=== PATIENT | female | born 1990 | race Caucasian/White ===

== ENCOUNTER 2019-07-18 01:50 | Emergency (ER) | payer SELFPAY ==
--- OUTSIDE RECORDS SUMMARY | 2019-07-18 01:52 | XMS REPORT ---
:1990 [facility] Address [address] [place] [address] [address]. [address] [place] [address] Care Team Providers Name Role Phone Unavailable Unavailable Unavailable Problems This patient has no known problems. Allergies, Adverse Reactions, Alerts This patient has no known allergies or adverse reactions. Medications This patient has no known medications.
--- NOTE | 2019-07-18 03:05 | ER ---
Nurse's Notes [facility] Name: Lisa Penn Age: 28 yrs Sex: Female : 1990 Arrival Date: 07/18/2019 Time: 01:54 Bed 20 Private MD: Diagnosis: Acute pharyngitis Presentation: 07/18 02:05 Presenting complaint: Patient states: she has had a sore throat for a week but the pain bb is worse tonight and she feels like it is "closed" on the left side, pt denies fever. Transition of care: patient was not received from another setting of care. Onset of symptoms was July 12, 2019. Risk Assessment: Do you want to hurt yourself or someone else? Patient reports no desire to harm self or others. Initial Sepsis Screen: Does the patient meet any 2 criteria? No. Patient's initial sepsis screen is negative. Does the patient have a suspected source of infection? No. Patient's initial sepsis screen is negative. Care prior to arrival: None. 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 - Social history:: Smoking status: unknown. - Ebola Screening: : No symptoms or risks identified at this time. Screenin:26 Abuse screen: Denies threats or abuse. Denies injuries from another. Nutritional wh screening: No deficits noted. Tuberculosis screening: No symptoms or risk factors identified. Fall Risk None identified. Assessment: 02:24 General: Appears in no apparent distress. Behavior is calm, cooperative, appropriate wh for age. Pain: Complains of pain in Sore throat. Neuro: Level of Consciousness is awake, alert, obeys commands, Oriented to person, place, time, situation, Appropriate for age. Cardiovascular: Heart tones S1 S2. Respiratory: Airway is patent Respiratory effort is even, unlabored, Respiratory pattern is regular, symmetrical, Breath sounds are clear bilaterally. GI: Abdomen is flat, non-distended. : No signs and/or symptoms were reported regarding the genitourinary system. EENT: Throat is reddened. Derm: Skin is intact, is healthy with good turgor, Skin is pink, warm \\T\\ dry. normal. Musculoskeletal: Circulation, motion, and sensation intact. 03:37 Reassessment: Patient appears in no apparent distress at this time. No changes from previously documented assessment. Patient and/or family updated on plan of care and expected duration. Pain level reassessed. Patient is alert, oriented x 3, equal unlabored respirations, skin warm/dry/pink. Vital Signs: 02:07 BP 116 / 58; Pulse 83; Resp 14 S; Temp 98.2(O); Pulse Ox 100% on R/A; Weight 134.26 kg bb (R); Height 5 ft. 4 in. (162.56 cm) (R); Pain 8/10; 02:26 BP 102 / 60; Pulse 87; Resp 16; Pulse Ox 100% on R/A; wh 03:37 BP 97 / 67; Pulse 83; Resp 18; Pulse Ox 99% ; wh 02:07 Body Mass Index 50.81 (134.26 kg, 162.56 cm) ED Course: 01:54 Patient arrived in ED. jg7 02:00 Veronica Jacques FNP-C [facility]. snw 02:00 Pancho Mendoza MD is Attending Physician. snw 02:05 Kolby Castle is Primary Nurse. 02:07 Triage completed. 02:07 Arm band placed on Patient placed in an exam room, on a stretcher, on pulse oximetry. 02:26 Patient has correct armband on for positive identification. Bed in low position. Call light in reach. Side rails up X 1. Pulse ox on. NIBP on. 03:38 No provider procedures requiring assistance completed. Patient did not have IV access during this emergency room visit. Administered Medications: 03:13 Drug: Decadron 8 mg Route: PO; 03:39 Follow up: Response: No adverse reaction Outcome: 03:03 Discharge ordered by . snw 03:38 Discharged to home ambulatory. 03:38 Condition: stable 03:38 Discharge instructions given to patient, Instructed on discharge instructions, follow up and referral plans. medication usage, POC Pharyngitis Demonstrated understanding of instructions, follow-up care, medications, POC Prescriptions given X 2. 03:39 Patient left the ED. Signatures: Veronica Jacques, RESEARCH RECRUITER-C RESEARCH RECRUITER-Csnw Sandra Nunez, RN RN Kolby Peterson Taylor Brady
--- NOTE | 2019-07-18 03:05 | EDPHYS ---
Physician Documentation [facility] Name: Lisa Penn Age: 28 yrs Sex: Female : 1990 Arrival Date: 07/18/2019 Time: 01:54 Bed 20 Private MD: ED Physician Pancho Mendoza HPI: 07/18 02:51 This 28 yrs old Female presents to ER via Ambulatory with complaints of Sore snw Throat, Difficulty Swallowing. 02:51 The patient presents with sore throat. The patient describes throat pain as raw. Onset: snw The symptoms/episode began/occurred gradually, 1 week(s) ago, and became persistent. Severity of symptoms: At their worst the symptoms were moderate. Associated signs and symptoms: The patient has no apparent associated signs or symptoms. It is unknown whether or not the patient has had similar symptoms in the past. The patient has not recently seen a physician. 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 - Social history:: Smoking status: unknown. - Ebola Screening: : No symptoms or risks identified at this time. ROS: 02:47 Constitutional: Negative for fever, chills, and weight loss, Eyes: Negative for injury, snw pain, redness, and discharge, ENT: Negative for injury and discharge, left > right pharyngeal pain Neck: Negative for injury, pain, and swelling, Cardiovascular: Negative for chest pain, palpitations, and edema, Respiratory: Negative for shortness of breath, cough, wheezing, and pleuritic chest pain, Abdomen/GI: Negative for abdominal pain, nausea, vomiting, diarrhea, and constipation, Back: Negative for injury and pain, : Negative for injury, bleeding, discharge, and swelling, MS/Extremity: Negative for injury and deformity, Skin: Negative for injury, rash, and discoloration, Neuro: Negative for headache, weakness, numbness, tingling, and seizure, Psych: Negative for depression, anxiety, suicide ideation, homicidal ideation, and hallucinations. Exam: 02:47 Constitutional: This is a well developed, well nourished patient who is awake, alert, snw and in no acute distress. Head/Face: Normocephalic, atraumatic. Eyes: Pupils equal round and reactive to light, extra-ocular motions intact. Lids and lashes normal. Conjunctiva and sclera are non-icteric and not injected. Cornea within normal limits. Periorbital areas with no swelling, redness, or edema. Neck: Trachea midline, no thyromegaly or masses palpated, and no cervical lymphadenopathy. Supple, full range of motion without nuchal rigidity, or vertebral point tenderness. No Meningismus. Chest/axilla: Normal chest wall appearance and motion. Nontender with no deformity. No lesions are appreciated. Cardiovascular: Regular rate and rhythm with a normal S1 and S2. No gallops, murmurs, or rubs. Normal PMI, no JVD. No pulse deficits. Respiratory: Lungs have equal breath sounds bilaterally, clear to auscultation and percussion. No rales, rhonchi or wheezes noted. No increased work of breathing, no retractions or nasal flaring. Abdomen/GI: Soft, non-tender, with normal bowel sounds. No distension or tympany. No guarding or rebound. No evidence of tenderness throughout. Back: No spinal tenderness. No costovertebral tenderness. Full range of motion. Skin: Warm, dry with normal turgor. Normal color with no rashes, no lesions, and no evidence of cellulitis. MS/ Extremity: Pulses equal, no cyanosis. Neurovascular intact. Full, normal range of motion. Neuro: Awake and alert, GCS 15, oriented to person, place, time, and situation. Cranial nerves II-XII grossly intact. Motor strength 5/5 in all extremities. Sensory grossly intact. Cerebellar exam normal. Normal gait. Psych: Awake, alert, with orientation to person, place and time. Behavior, mood, and affect are within normal limits. 02:47 ENT: TM's: are normal, Nose: is normal, Mouth: is normal, Posterior pharynx: erythema, that is moderate, Voice: is normal. Vital Signs: 02:07 BP 116 / 58; Pulse 83; Resp 14 S; Temp 98.2(O); Pulse Ox 100% on R/A; Weight 134.26 kg bb (R); Height 5 ft. 4 in. (162.56 cm) (R); Pain 8/10; 02:26 BP 102 / 60; Pulse 87; Resp 16; Pulse Ox 100% on R/A; wh 03:37 BP 97 / 67; Pulse 83; Resp 18; Pulse Ox 99% ; wh 02:07 Body Mass Index 50.81 (134.26 kg, 162.56 cm) bb MDM: 02:03 Patient medically screened. snw 03:04 Data reviewed: vital signs, nurses notes. Data interpreted: Pulse oximetry: on room air snw is 100 %. Interpretation: normal. Counseling: I had a detailed discussion with the patient and/or guardian regarding: the historical points, exam findings, and any diagnostic results supporting the discharge/admit diagnosis, lab results, the need for outpatient follow up, to return to the emergency department if symptoms worsen or persist or if there are any questions or concerns that arise at home. Special discussion: Based on the history and exam findings, there is no indication for further emergent testing or inpatient evaluation. I discussed with the patient/guardian the need to see the primary care provider for further evaluation of the symptoms. 07/18 02:24 Order name: Strep; Complete Time: 03:01 12 02:56 Order name: Throat Culture EDMS Administered Medications: 03:13 Drug: Decadron 8 mg Route: PO; 03:39 Follow up: Response: No adverse reaction Disposition: 06:55 Co-signature as Attending Physician, Pancho Mendoza MD I agree with the assessment and 4 plan of care. Disposition: 07/18/19 03:03 Discharged to Home. Impression: Acute pharyngitis. - Condition is Stable. - Discharge Instructions: Pharyngitis, Rehydration, Adult. - Prescriptions for Prednisone 20 mg Oral Tablet - take 2 tablet by ORAL route once daily for 5 days; 10 tablet. Pepcid 20 mg Oral Tablet - take 1 tablet by ORAL route once daily; 20 tablet. - Work release form, Medication Reconciliation Form, Thank You Letter, Antibiotic Education, Prescription Opioid Use form. - Follow up: Private Physician; When: 2 - 3 days; Reason: Recheck today's complaints, Continuance of care, Re-evaluation by your physician. Follow up: Emergency Department; When: As needed; Reason: Worsening of condition. Signatures: Dispatcher [employer] EDMS Veronica Jacques, VOLCANOLOGIST-C VOLCANOLOGIST-Csnw Sandra Nunez, RN RN Kolby Peterson Terrence, MD MD tw4 Corrections: (The following items were deleted from the chart) 03:39 03:03 07/18/2019 03:03 Discharged to Home. Impression: Acute pharyngitis. Condition is wh Stable. Forms are Medication Reconciliation Form, Thank You Letter, Antibiotic Education, Prescription Opioid Use. Follow up: Private Physician; When: 2 - 3 days; Reason: Recheck today's complaints, Continuance of care, Re-evaluation by your physician. Follow up: Emergency Department; When: As needed; Reason: Worsening of condition. snw
[2019-07-18] MEDS ORDERED: dexAMETHasone 4 MG TAB ONE (03:09)
[2019-07-18 04:18] VITALS: TEMP 98.2
[2019-07-18 04:21] VITALS: BP 97/67; O2SAT 99
== END 2019-07-18 03:39 | disposition home or self-care (01) ==
LOC: ER 01:50
DX: J02.9 Acute pharyngitis, unspecified (principal)
CPT/HCPCS: 87070; 87081; 99283; J8540

== ENCOUNTER 2022-01-14 12:56 | Emergency (ER) | payer OTHER, SELFPAY ==
--- OUTSIDE RECORDS SUMMARY | 2022-01-14 12:58 | XMS REPORT | Continuity of Care Document ---
:1990 Author Organization [facility] t Address [facility] [place] [address] Care Team Providers Name Role Phone Rutledge_L Attending Clinician Unavailable Rutledge_L Admitting Clinician Unavailable Payers Payer Name Policy Type Policy Number Effective Date Expiration Date Estelita GRIMES ([facility]) [id number] 00:00:00 Problems This patient has no known problems. Allergies, Adverse Reactions, Alerts This patient has no known allergies or adverse reactions. Medications This patient has no known medications. Procedures This patient has no known procedures. Encounters Start End Encounter Admission Attending Care Care Encounter Source Date/Time Date/Time Type Type Clinicians Facility Department ID 2021-11-22 2021-11-22 Outpatient Johnny_L [id number] 02:17:00 02:17:00 [id number] Results This patient has no known results.
[2022-01-14] MEDS ORDERED: ONDANSETRON 4 MG (ODT) TAB ONE (13:15)
[2022-01-14 14:05] LABS: Urine Blood 2+ (Negative); Urine Glucose Negative (Negative); Urine Protein Negative (Negative); Urine Specific Gravity >=1.030 (1.005-1.030); Urine pH 6.5 (5.0-7.0)
[2022-01-14 14:50] LABS: Urine Bacteria 20-50 /HPF (<20); Urine RBC 20-50 /HPF (NONE SEEN)
[2022-01-14 14:51] LABS: Urine Mucus 3+ /HPF (NONE SEEN)
[2022-01-14 15:39] LABS: Absolute Lymphocytes (CBC) 1.4 K/uL (0.7-4.9); Hematocrit 39.4 % (36.0-45.0); Lymphocytes % 22.5 % (15.3-44.8); MPV 8.6 fL (7.6-11.3); RBC Red Blood Cell Count 5.02 M/uL (3.86-4.86)
[2022-01-14 15:53] LABS: Albumin 3.6 g/dL (3.4-5.0); Bilirubin Total 0.7 mg/dL (0.2-1.0); Potassium 3.9 mmol/L (3.5-5.1); Protein, Total 7.4 g/dL (6.4-8.2)
--- NOTE | 2022-01-14 16:23 | RAD REPORT ---
EXAM DESCRIPTION: CTAbdomen Pelvis W Contrast - 01/14/2022 4:17 pm CLINICAL HISTORY: Abdominal pain. r/o pyelo COMPARISON: No comparisons TECHNIQUE: Biphasic CT imaging of the abdomen and pelvis was performed with 100 ml non-ionic IV cont rast. All CT scans are performed using dose optimization technique as appropriate and may include automated exposure control or mA/KV adjustment according to patient size. FINDINGS: The lung bases are clear. The liver, spleen, pancreas, adrenal glands and kidneys are within normal limits. No bowel obstruction, free air, free fluid or abscess. The appendix is normal. No evidence of signi ficant lymphadenopathy. No suspicious bony findings. IMPRESSION: No acute intra-abdominal or pelvic finding.
[2022-01-14] MEDS ORDERED: CEFTRIAXONE 1000 MG/VIAL ONE (16:45)
[2022-01-14] MEDS ORDERED: NA CHLORIDE 0.9% 1,000 ML ONE (16:45)
--- NOTE | 2022-01-14 17:32 | EDPHYS ---
Physician Documentation [facility] Name: Lisa Penn Age: 31 yrs Sex: Female : 1990 Arrival Date: 01/14/2022 Time: 13:02 Bed 9 Private MD: Manjinder Patricio ED Physician Rigo Suárez HPI: 01/14 13:05 This 31 yrs old Female presents to ER via Ambulatory with complaints of Flank Pain - jh7 right. 13:05 The patient complains of pain in the right low back. The pain does not radiate. Onset: jh7 The symptoms/episode began/occurred yesterday. Associated signs and symptoms: Pertinent positives: nausea, Pertinent negatives: dysuria, fever, vomiting. 13:05 Patient presents for right flank pain with nausea starting yesterday. She denies jh7 urinary symptoms. Denies fever, or any medical problems.. 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 - Social history:: Smoking status: Patient denies any tobacco usage or history of. Patient/guardian denies using alcohol. ROS: 13:05 Neck: Negative for injury, pain, and swelling, Cardiovascular: Negative for chest pain, jh7 palpitations, and edema, Respiratory: Negative for shortness of breath, cough, wheezing, and pleuritic chest pain, Abdomen/GI: Negative for abdominal pain, nausea, vomiting, diarrhea, and constipation, Back: Negative for injury and pain, Skin: Negative for injury, rash, and discoloration, Neuro: Negative for headache, weakness, numbness, tingling, and seizure. 13:05 Constitutional: Positive for fever, Negative for poor PO intake, weight loss. 13:05 : Positive for flank pain, Negative for urinary symptoms, vaginal bleeding, vaginal discharge. 13:05 All other systems are negative. Exam: 13:05 Constitutional: This is a well developed, well nourished patient who is awake, alert, jh7 and in no acute distress. ENT: Nares patent. No nasal discharge, no septal abnormalities noted. Oropharynx with no redness, swelling, or masses, exudates, or evidence of obstruction, uvula midline. Mucous membranes moist. Cardiovascular: Regular rate and rhythm with a normal S1 and S2. No gallops, murmurs, or rubs. Normal PMI, no JVD. No pulse deficits. Respiratory: Lungs have equal breath sounds bilaterally, clear to auscultation and percussion. No rales, rhonchi or wheezes noted. No increased work of breathing, no retractions or nasal flaring. Abdomen/GI: Soft, non-tender, with normal bowel sounds. No distension or tympany. No guarding or rebound. No evidence of tenderness throughout. Skin: Warm, dry with normal turgor. Normal color with no rashes, no lesions, and no evidence of cellulitis. Neuro: Awake and alert, GCS 15, oriented to person, place, time, and situation. Normal gait. 13:05 : CVA tenderness, on the right. Vital Signs: 13:02 BP 156 / 94; Pulse 74; Resp 18; Temp 98.1(O); Pulse Ox 99% on R/A; Weight 149.23 kg; ld1 Height 5 ft. 4 in. (162.56 cm); Pain 10/10; 13:02 Body Mass Index 56.47 (149.23 kg, 162.56 cm) ld1 MDM: 13:56 Patient medically screened. [facility] 17:47 Differential diagnosis: pyelonephritis, UTI. Data reviewed: vital signs, nurses notes, [facility] lab test result(s), radiologic studies, CT scan. Data interpreted: Pulse oximetry: is 99 %. Interpretation: normal. Counseling: I had a detailed discussion with the patient and/or guardian regarding: the historical points, exam findings, and any diagnostic results supporting the discharge/admit diagnosis, to return to the emergency department if symptoms worsen or persist or if there are any questions or concerns that arise at home. Response to treatment: the patient's symptoms have markedly improved after treatment. ED course: Informed the patient that she had a UTI and that although we gave her IV antibiotics, she would need to take prescribed oral antibiotics at home as well. Informed her that her other lab work and imaging were normal. If she develops worsening symptoms, or any new concerning symptoms, she is to return to the ER for further eval. The patient understood the plan of care.. 01/14 13:12 Order name: CBC with Diff; Complete Time: 16:20 [facility] 01/14 13:12 Order name: CMP; Complete Time: 16:20 [facility] 01/14 13:12 Order name: Lipase; Complete Time: 16:20 [facility] 01/14 13:12 Order name: Urine Microscopic Only; Complete Time: 15:10 [facility] 01/14 14:05 Order name: Urine Dipstick-Ancillary; Complete Time: 14:50 [facility] 01/14 13:12 Order name: IV Saline Lock; Complete Time: 16:32 [facility] 01/14 13:12 Order name: Labs collected and sent; Complete Time: 16:32 [facility] 01/14 13:12 Order name: Urine Dipstick-Ancillary (obtain specimen); Complete Time: 16:32 [facility] 01/14 14:53 Order name: Urine Culture [facility] 01/14 15:12 Order name: CT Abd/Pelvis - IV Contrast Only; Complete Time: 16:29 [facility] 01/14 13:12 Order name: Urine Test (obtain specimen); Complete Time: 16:33 [facility] Administered Medications: 13:17 Drug: Ondansetron 4 mg Route: PO; ld1 17:05 Drug: NS 0.9% 1000 ml Route: IV; Rate: 1 bolus; Site: right upper arm; jb4 17:56 Follow up: Response: No adverse reaction; IV Status: Completed infusion jb4 17:05 Drug: Rocephin (cefTRIAXone) 1 grams Route: IV; Rate: calculated rate; Site: right [facility] upper arm; 17:07 Follow up: IV Status: Completed infusion jb4 17:57 Follow up: Response: No adverse reaction jb4 Disposition: 22:09 Co-signature as Attending Physician, Rigo ROMERO was immediately available on-site ms3 in the Emergency Department for consultation in the care of the patient. . Disposition Summary: 01/14/22 17:31 Discharge Ordered Location: Home [facility] Problem: [facility] Symptoms: have improved [facility] Condition: Stable [facility] Diagnosis - UTI/ Urinary tract infection, site not specified [facility] Followup: [facility] - With: Private Physician - When: 2 - 3 days - Reason: Recheck today's complaints Discharge Instructions: - Discharge Summary Sheet [facility] - Urinary Tract Infection, Adult [facility] - Antibiotic Medicine, Adult [facility] Forms: - Medication Reconciliation Form [facility] - Thank You Letter [facility] - Antibiotic Education [facility] Prescriptions: - Pyridium 200 mg Oral Tablet - take 1 tablet by ORAL route every 8 hours for 3 days; 9 tablet; Refills: 0, [facility] Product Selection Permitted - Macrobid 100 mg Oral Capsule - take 1 capsule by ORAL route every 12 hours for 7 days; 14 capsule; Refills: 0, [facility] Product Selection Permitted Signatures: Dispatcher [employer] EDLionel Pereyra RN RN jb4 Rigo Suárez DO DO ms3 Brittany Delgadillo RN RN ld1 Ese Roberts FNP [place] [id number] Corrections: (The following items were deleted from the chart) 15:39 13:05 : CVA tenderness, that is mild, [place] [id number]
--- NOTE | 2022-01-14 17:32 | ER ---
Nurse's Notes [facility] Name: Lisa Penn Age: 31 yrs Sex: Female : 1990 Arrival Date: 01/14/2022 Time: 13:02 Bed 9 Private MD: Manjinder Patricio Diagnosis: UTI/ Urinary tract infection, site not specified Presentation: 01/14 13:02 Chief complaint: Patient states: Right flank pain since yesterday. Coronavirus screen: ld1 At this time, the client does not indicate any symptoms associated with coronavirus-19. Ebola Screen: No symptoms or risks identified at this time. Initial Sepsis Screen: Does the patient meet any 2 criteria? No. Patient's initial sepsis screen is negative. Does the patient have a suspected source of infection? No. Patient's initial sepsis screen is negative. Risk Assessment: Do you want to hurt yourself or someone else? Patient reports no desire to harm self or others. Onset of symptoms was January 14, 2022. 13:02 Method Of Arrival: Ambulatory ld1 13:02 Acuity: TROY 3 ld1 Triage Assessment: 13:03 General: Appears in no apparent distress. comfortable, Behavior is calm, cooperative, ld1 appropriate for age. Pain: Complains of pain in right low back Pain does not radiate. Pain currently is 10 out of 10 on a pain scale. Quality of pain is described as stabbing. EENT: No signs and/or symptoms were reported regarding the EENT system. Neuro: Level of Consciousness is awake, alert, obeys commands, Oriented to person, place, time, situation. Cardiovascular: Capillary refill < 3 seconds Patient's skin is warm and dry. Respiratory: Airway is patent Respiratory effort is even, unlabored. GI: Abdomen is round obese. : No signs and/or symptoms were reported regarding the genitourinary system. Derm: No signs and/or symptoms reported regarding the dermatologic system. Musculoskeletal: Reports pain in right low back. 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 - Social history:: Smoking status: Patient denies any tobacco usage or history of. Patient/guardian denies using alcohol. Screenin:27 Abuse screen: Denies threats or abuse. Denies injuries from another. Nutritional iw screening: No deficits noted. Tuberculosis screening: No symptoms or risk factors identified. Fall Risk IV access (20 points). Assessment: 17:54 Reassessment: Patient appears in no apparent distress at this time. Patient and/or jb4 family updated on plan of care and expected duration. Pain level reassessed. Patient is alert, oriented x 3, equal unlabored respirations, skin warm/dry/pink. Vital Signs: 13:02 BP 156 / 94; Pulse 74; Resp 18; Temp 98.1(O); Pulse Ox 99% on R/A; Weight 149.23 kg; ld1 Height 5 ft. 4 in. (162.56 cm); Pain 10/10; 13:02 Body Mass Index 56.47 (149.23 kg, 162.56 cm) ld1 ED Course: 13:02 Patient arrived in ED. am2 13:02 Manijnder Patricio MD is Private Physician. am2 13:03 Triage completed. ld1 13:06 [facility] jh7 13:07 Rigo Suárez DO is Attending Physician. jh7 15:26 Inserted saline lock: 22 gauge in right upper arm, using aseptic technique. Blood iw collected. 16:19 CT Abd/Pelvis - IV Contrast Only In Process Unspecified. EDMS 16:32 Lionel Santamaria, KATHY is Primary Nurse. jb4 17:54 No provider procedures requiring assistance completed. IV discontinued, intact, jb4 bleeding controlled, No redness/swelling at site. Pressure dressing applied. 17:54 Patient has correct armband on for positive identification. Bed in low position. Call jb4 light in reach. Side rails up X 1. Administered Medications: 13:17 Drug: Ondansetron 4 mg Route: PO; ld1 17:05 Drug: NS 0.9% 1000 ml Route: IV; Rate: 1 bolus; Site: right upper arm; jb4 17:56 Follow up: Response: No adverse reaction; IV Status: Completed infusion jb4 17:05 Drug: Rocephin (cefTRIAXone) 1 grams Route: IV; Rate: calculated rate; Site: right jb upper arm; 17:07 Follow up: IV Status: Completed infusion jb4 17:57 Follow up: Response: No adverse reaction jb4 Medication: 17:54 VIS not applicable for this client. jb4 Outcome: 17:31 Discharge ordered by MD. sparks 17:54 Discharged to home ambulatory. jb4 17:54 Condition: stable 17:54 Discharge instructions given to patient, Instructed on discharge instructions, follow up and referral plans. medication usage, Demonstrated understanding of instructions, follow-up care, medications, Prescriptions given X 1. 18:00 Patient left the ED. jb4 Signatures: Dispatcher [employer] EDArelis Antoine, RN RN Lionel Ordonez RN RN jb4 Bindu Hunt Lauren, RN RN ld1 Ese Roberts, HOTEL FRONT DESK AGENT HOTEL FRONT DESK AGENT 7
[2022-01-14 18:09] VITALS: BP 156/94; TEMP 98.1; O2SAT 99
== END 2022-01-14 18:00 | disposition home or self-care (01) ==
LOC: ER 12:56
DX: N39.0 Urinary tract infection, site not specified (principal)
CPT/HCPCS: 87088; 85025; 87086; 36415; 83690; 80053; 74177; Q9967; J7030; 81003; 81015; 96361; 96374; 99284